=== PATIENT | female | born 1955 | race Two or more races ===

== ENCOUNTER 2016-08-21 15:20 | Outpatient (CLI) | payer OTHER ==
[~2016-08-21] VITALS: Ht 165.1 cm; Wt 139.5 kg
[2016-08-21 15:51] VITALS: Ht 165.1 cm; Wt 139.5 kg
[2016-08-21] MEDS ORDERED: ATOR40TA68 PO (15:51)
[2016-08-21] MEDS ORDERED: PANT40TA4 PO (15:51)
[2016-08-21] MEDS ORDERED: ALEN35TA23 PO (15:51)
[2016-08-21] MEDS ORDERED: CALC250T2 PO (15:51)
[2016-08-21] MEDS ORDERED: CHOL100062 PO (15:51)
[2016-08-21] MEDS ORDERED: VENL100T PO (15:51)
[2016-08-21] MEDS ORDERED: GABA400C14 PO (15:51)
[2016-08-21] MEDS ORDERED: TRAZ100T15 PO (15:51)
[2016-08-21] MEDS ORDERED: WARF6TAB35 PO ×2 (15:51)
[2016-08-21] MEDS ORDERED: DULO60CA59 PO (15:51)
[2016-08-21] MEDS ORDERED: TRAM-40 PO (15:51)
[2016-08-21] MEDS ORDERED: BENA10TA48 PO (15:51)
[2016-08-21] MEDS ORDERED: GABA300C16 PO (15:51)
[2016-08-21] MEDS ORDERED: ASPI-664 PO (15:51)
[2016-08-21] MEDS ORDERED: PRED5 PO (15:51)
[2016-08-21 15:52] VITALS: BP 132/72; PULSE 72; RESP 18
--- NOTE | 2016-08-21 16:00 | PN ---
Date/Time of Note Date/Time of Note DATE: 08/21/16 TIME: 15:52 Outpatient Progress Note Chief Complaint Hypertension/CVA/PE/fibromyalgia/depression HPI Hypertension/patient denies any headache or dizziness, no lightheadedness, no chest pain, no PND orthopnea or ankle edema, patient was recently hospitalized, patient was seen by reel system operator, patient still complains of minimal chest discomfort, CVA/patient had old CVA, no dysphagia, no seizure, difficulty in movements of lower extremities, PE/patient has bilateral PE, in 2016, patient on Lovenox and Coumadin at present , patient last INR was 1, patient was recently hospitalized with a high INR, patient does not have any bruise, no hematuria, no chest pain, no PND orthopnea , no tachypnea, Fibromyalgia/patient has fibromyalgia, is joint pain stiffness, Depression/patient slightly depressed, no suicidal, on medication, Hyperlipidemia/patient has hyperlipidemia, on medication, Review of Systems Const: No Fever, no chills, no Wt. loss, no Fatigue, normal appetite, no diaphoresis. Eyes: No pain, no discharge, no redness, no visual change, no foreign body. ENT: No pain, no bleeding, no congestion, no sore throat, no dysphagia, no discharge or rhinitis. Lymph: No adenopathy, no tender nodes, no lymphedema. Resp: No SOB at present, but patient has off-and-on shortness of breath,, no cough, no sputum, no wheezing, no chest pain. CV: Patient has minimal chest pain patient was recently hospitalized, patient was seen by reel system operator,, no palpitaions, no FRANKLIN, no PND, no edema. GI: Normal appetite, no pain, no nausea, no vomiting, no diarrhea, no blood, no constipation. : No frequency, no urgency, no dysuria, no hematuria, no flank pain, no discharge, no bleeding. Musc: Generalized pain, no back pain, no neck pain, no knee pain, no restricted ROM. Skin: No rash, no skin lesions, no erythema, no laceration, no bruising, no pruritus. Neuro: No HANKINS, no dizziness, no syncope, no seizure, no focal-weakness. Endo: No polyuria, no polydypsia, no dry-skin, no temp-intolerance. Psych: No hallucinations, no depression, no anxiety, no suicidal ideation. Ext: No edema, no pain, no ulcer, no weakness. Physical Exam General Appearance: A 60 y ear-old female who appears well-developed, well- nourished morbidly obese,, in no acute distress. HEENT: Head normocephalic, atraumatic. Pupils equal, round, reactive to light and accommodate. Sclerae are no jaundice. Nasal turbinates pink without erythema or nasal discharge. Mucous membranes pink and moist without lesions. Oropharynx clear without any exudate or discharge. NECK: Supple. Trachea midline, No thyromegaly, No cervical lymphadenopathy, No mass, No carotid bruits, No JVD, Carotid pulses 2+ bilaterally. PULMONARY: Clear to auscultaion bilaterally, No retractions, Chest expansion symmetric bilaterally, no rales, no ronchi, no dulness on percussion. CARDIAC: Normal SI and S2, Regular rate and rythm, no murmur, gallop, or rub. GASTROINTESTINAL: Abdomen is soft, non-tender, Non Rigid, No distention, Positive bowel sounds x4 quadrants, Liver normal. SKIN: Warm, dry, no rash, no bruise, no echmosis. EXTREMITIES: Bilateral lower extremities normal, no edema, no phlabitus, pulse palpable, no contracture. MUSCULOSKELETAL: Spine Normal, Non-tender, Normal range of motion, No swelling, no deformity, no clubbing, or cyanosis, the patient has no edema to bilateral lower extremities, dorsalis pedis pulses palpable bilaterally. NEUROLOGIC: The patient is awake, alert, oriented, responding to yes/no questions appropriately, moving all extremities, cranial nerve intact, normal strenght, normal power, normal coordination, normal gait. Allergies Coded Allergies: No Known Drug Allergies (Verified Allergy, Unknown, 08/21/16) PMH ASHD/CVS/hypertension/bilateral PE/fibromyalgia/depression/DJD Cholecystectomy/left knee meniscus surgery,/benign facial lesion removal,/ stomal stapling, 30 years ago Social Hx Lives in senior citizen apartment, no smoking no drinking no drugs, Family Hx Maternal grandmother and aunt had CVA, no family history of IA, Assessment/Plan Impression Hypertension/CVA/PE/fibromyalgia/depression/rheumatoid arthritis Plan Patient education done about her disease, patient has minimal chest discomfort, patient went for the chest pain to the hospital, patient still has minimal chest pain, no change in pain, Patient was seen by reel system operator, and patient also had workup being done, patient to follow with the primary care physician and reel system operator, Patient INR when she left the hospital was 6, and last INR was 1, patient on Lovenox and Coumadin, patient take Coumadin 6 mg daily, for last few days, Will get INR, discussed with the patient and also nurse practitioner, they will draw the blood, and we will send the nurse to blood draw, and they will call me , I have given a prescription, Patient has all the medication, Medications Home Meds Reported Medications Warfarin Sodium* (Warfarin Sodium*) 6 Mg Tablet, 9 MG PO tuesthursatsun, TAB 08/21/16 Warfarin Sodium* (Warfarin Sodium*) 6 Mg Tablet, 6 MG PO monwed, TAB 08/21/16 Venlafaxine Hcl* (Venlafaxine Hcl*) 100 Mg Tablet, 100 MG PO DAILY, TAB 08/21/16 Trazodone Hcl* (Trazodone Hcl*) 100 Mg Tablet, 100 MG PO QHS for INSOMNIA, #30 TAB 08/21/16 Tramadol Hcl* (Ultram*) 50 Mg Tablet, 100 MG PO BID Y for PAIN, TAB 08/21/16 Prednisone* (Prednisone*) 5 Mg Tab, 5 MG PO DAILY, TAB 08/21/16 Pantoprazole* (Pantoprazole*) 40 Mg Tablet.dr, 40 MG PO AC BREAKFAST, TAB 08/21/16 Gabapentin* (Gabapentin*) 400 Mg Capsule, 400 MG PO QHS, #90 CAP 08/21/16 Gabapentin* (Gabapentin*) 300 Mg Capsule, 300 MG PO BID, #60 CAP 08/21/16 Duloxetine Hcl* (Duloxetine Hcl*) 60 Mg Capsule.dr, 60 MG PO DAILY, #30 CAP 08/21/16 Cholecalciferol* (Vitamin D3*) 1,000 Unit Tablet, 2000 UNIT PO DAILY, TAB 08/21/16 Calcium Citrate (Calcium Citrate) 250 Mg Tablet, 500 MG PO, TAB 08/21/16 Benazepril Hcl* (Benazepril Hcl*) 10 Mg Tablet, 10 MG PO DAILY, #30 TAB 08/21/16 Atorvastatin* (Atorvastatin*) 40 Mg Tablet, 40 MG PO QHS, #30 TAB 08/21/16 Aspirin (Low Dose Aspirin) 81 Mg Tablet.dr, 81 MG PO DAILY, #30 TAB 08/21/16 Alendronate Sodium* (Alendronate Sodium*) 35 Mg Tablet, 35 MG PO Q7D, #4 TAB 08/21/16 NAYE WILCOX MD August 21, 2016 16:00
== END 2016-08-21 16:23 | disposition home or self-care (01) ==
LOC: DCC 15:20
PROVIDERS: ATTEND Internal Medicine
DX: R07.9 Chest pain, unspecified (principal); I10 Essential (primary) hypertension; F32.9 Major depressive disorder, single episode, unspecified; M06.9 Rheumatoid arthritis, unspecified; M79.7 Fibromyalgia; Z79.82 Long term (current) use of aspirin; Z86.73 Personal history of transient ischemic attack (TIA), and cerebral infarction without residual deficits

== ENCOUNTER 2016-09-04 11:46 | Outpatient (CLI) | payer OTHER ==
[~2016-09-04] VITALS: Ht 165.1 cm; Wt 135.9 kg
[~2016-09-04 11:46] MED LIST: ALEN35TA23 PO; ASPI-664 PO; ATOR40TA68 PO; BENA10TA48 PO; CALC250T2 PO; CHOL100062 PO; DULO60CA59 PO; GABA300C16 PO; GABA400C14 PO; PANT40TA4 PO; PRED5 PO; TRAM-40 PO; TRAZ100T15 PO; VENL100T PO; WARF6TAB35 PO
[2016-09-04 11:55] VITALS: BP 149/65; PULSE 74; RESP 18
--- NOTE | 2016-09-04 12:14 | PN ---
Date/Time of Note Date/Time of Note DATE: 09/04/16 TIME: 12:10 Outpatient Progress Note Chief Complaint Hypertension/CVA/PE/fibromyalgia HPI Hypertension/no headache or dizziness, no lightheadedness, no tingling, no numbness, no new local focal weakness, CVA/patient has anemia, no dysphagia, no seizure, difficulty moving lower extremities, patient does have some cramps cramps more during the daytime than at night, PE/no cough expectoration or hemoptysis or shortness of breath, patient on Coumadin, PT/INR therapeutic range, Fibromyalgia/patient has fibromyalgia, patient has joint pain stiffness pain and difficulty in movements,, Review of Systems Const: No Fever, no chills, no Wt. loss, no Fatigue, normal appetite, no diaphoresis. Eyes: No pain, no discharge, no redness, no visual change, no foreign body. ENT: No pain, no bleeding, no congestion, no sore throat, no dysphagia, no discharge or rhinitis. Lymph: No adenopathy, no tender nodes, no lymphedema. Resp: No SOB, no cough, no sputum, no wheezing, no chest pain. No chest pain,'s CV: No chest pain, no palpitaions, no FRANKLIN, no PND, no edema. GI: Normal appetite, no pain, no nausea, no vomiting, no diarrhea, no blood, no constipation. : No frequency, no urgency, no dysuria, no hematuria, no flank pain, no discharge, no bleeding. Musc: Leg spasm and cramps especially on the right leg, no back pain, slight neck pain patient had a neck injection before the hospitalization, no knee pain , no restricted ROM. Skin: No rash, no skin lesions, no erythema, no laceration, no bruising, no pruritus. Neuro: No HANKINS, no dizziness, no syncope, no seizure, no focal-weakness. Endo: No polyuria, no polydypsia, no dry-skin, no temp-intolerance. Psych: No hallucinations, no depression, no anxiety, no suicidal ideation. Ext: No edema, no pain, no ulcer, no weakness. Difficulty moving lower extremities, Physical Exam Vital Signs Date Time Temp Pulse Resp B/P Pulse Ox O2 Delivery O2 Flow Rate FiO2 09/04/16 11:55 97.7 74 18 149/65 93 Room Air General Appearance: A 60 year-old female who appears well-developed, well- nourished, in no acute distress. HEENT: Head normocephalic, atraumatic. Pupils equal, round, reactive to light and accommodate. Sclerae are no jaundice. Nasal turbinates pink without erythema or nasal discharge. Mucous membranes pink and moist without lesions. Oropharynx clear without any exudate or discharge. NECK: Supple. Trachea midline, neck pain, status post injection, no thyromegaly , No cervical lymphadenopathy, No mass, No carotid bruits, No JVD, Carotid pulses 2+ bilaterally. PULMONARY: Clear to auscultaion bilaterally, No retractions, Chest expansion symmetric bilaterally, no rales, no ronchi, no dulness on percussion. CARDIAC: Normal SI and S2, Regular rate and rythm, no murmur, gallop, or rub. GASTROINTESTINAL: Abdomen is soft, non-tender, Non Rigid, No distention, Positive bowel sounds x4 quadrants, Liver normal. SKIN: Warm, dry, no rash, no bruise, no echmosis. EXTREMITIES: Bilateral lower extremities , no edema, no phlabitus, pulse palpable, no contracture. Patient has difficulty moving lower extremities, MUSCULOSKELETAL: Spine Normal, Non-tender, Normal range of motion, No swelling, no deformity, no clubbing, or cyanosis, the patient has no edema to bilateral lower extremities, dorsalis pedis pulses palpable bilaterally. NEUROLOGIC: The patient is awake, alert, oriented, responding to yes/no questions appropriately, moving all extremities, cranial nerve intact, normal strenght, normal power, normal coordination, normal gait. Allergies Coded Allergies: No Known Drug Allergies (Verified Allergy, Unknown, 08/21/16) PMH No change Social Hx No change Family Hx No change Assessment/Plan Impression Hypertension/CVA/PE/fibromyalgia/history of depression/hyperlipidemia Plan Patient encouraged to increase activity, increase passive range of motion, Patient encouraged to follow with the primary care physician, PT/INR Wednesday, and to call us to report, patient at present 7 mg Coumadin, will adjust her Coumadin according to INR, Increase activity, fall precaution, patient has all medication, Prescription for PT/INR given to the patient, Medications Home Meds Reported Medications Warfarin Sodium* (Warfarin Sodium*) 6 Mg Tablet, 9 MG PO yusef, TAB 08/21/16 Warfarin Sodium* (Warfarin Sodium*) 6 Mg Tablet, 6 MG PO monwed, TAB 08/21/16 Venlafaxine Hcl* (Venlafaxine Hcl*) 100 Mg Tablet, 100 MG PO DAILY, TAB 08/21/16 Trazodone Hcl* (Trazodone Hcl*) 100 Mg Tablet, 100 MG PO QHS for INSOMNIA, #30 TAB 08/21/16 Tramadol Hcl* (Ultram*) 50 Mg Tablet, 100 MG PO BID Y for PAIN, TAB 08/21/16 Prednisone* (Prednisone*) 5 Mg Tab, 5 MG PO DAILY, TAB 08/21/16 Pantoprazole* (Pantoprazole*) 40 Mg Tablet.dr, 40 MG PO AC BREAKFAST, TAB 08/21/16 Gabapentin* (Gabapentin*) 400 Mg Capsule, 400 MG PO QHS, #90 CAP 08/21/16 Gabapentin* (Gabapentin*) 300 Mg Capsule, 300 MG PO BID, #60 CAP 08/21/16 Duloxetine Hcl* (Duloxetine Hcl*) 60 Mg Capsule.dr, 60 MG PO DAILY, #30 CAP 08/21/16 Cholecalciferol* (Vitamin D3*) 1,000 Unit Tablet, 2000 UNIT PO DAILY, TAB 08/21/16 Calcium Citrate (Calcium Citrate) 250 Mg Tablet, 500 MG PO, TAB 08/21/16 Benazepril Hcl* (Benazepril Hcl*) 10 Mg Tablet, 10 MG PO DAILY, #30 TAB 08/21/16 Atorvastatin* (Atorvastatin*) 40 Mg Tablet, 40 MG PO QHS, #30 TAB 08/21/16 Aspirin (Low Dose Aspirin) 81 Mg Tablet.dr, 81 MG PO DAILY, #30 TAB 08/21/16 Alendronate Sodium* (Alendronate Sodium*) 35 Mg Tablet, 35 MG PO Q7D, #4 TAB 08/21/16 NAYE WILCOX MD Sep 04, 2016 12:14
--- NOTE | 2016-09-04 15:16 | PN ---
Date/Time of Note Date/Time of Note DATE: 09/04/16 TIME: 15:08 Outpatient Progress Note Chief Complaint Chest pain/diabetes/hypertension/A. fib/hepatitis C/cirrhosis/ HPI Chest pain/patient was recently admitted to the hospital with a chest pain, patient has pleural effusion, patient pain improved, still has some discomfort, Diabetes/no polydipsia polyuria hypoglycemia, gastroparesis, no frequency urgency, no impaired vision, no hypoglycemia, Hypertension/no headache or dizziness, no lightheadedness, A. fib/patient has history of A. fib and flutter, on Eliquis, Hepatitis C/patient has hepatitis C, no jaundice, patient has cirrhosis of liver , Cirrhosis of liver/patient has h has cirrhosis of liver, secondary to hepatitis C, patient has slight ascites, abdominal distention, slightly confused, Review of Systems Const: No Fever, no chills, no Wt. loss, no Fatigue, normal appetite, no diaphoresis. Eyes: No pain, no discharge, no redness, no visual change, no foreign body. ENT: No pain, no bleeding, no congestion, no sore throat, no dysphagia, no discharge or rhinitis. Lymph: No adenopathy, no tender nodes, no lymphedema. Resp: No SOB, no cough, no sputum, no wheezing, minimal chest pain patient was recently hospitalized, patient was worked up, pain slightly better than before,. CV: No chest pain, no palpitaions, no FRANKLIN, no PND, no edema. GI: Normal appetite, no pain, no nausea, no vomiting, no diarrhea, no blood, no constipation. Patient had colonoscopy, and EGD, : No frequency, no urgency, no dysuria, no hematuria, no flank pain, no discharge, no bleeding. Musc: No bone/joint pain, no back pain, no neck pain, no knee pain, no restricted ROM. Skin: No rash, no skin lesions, no erythema, no laceration, no bruising, no pruritus. Neuro: No HANKINS, no dizziness, no syncope, no seizure, no focal-weakness patient feels slightly confused,. Endo: No polyuria, no polydypsia, no dry-skin, no temp-intolerance. Psych: No hallucinations, no depression, no anxiety, no suicidal ideation. Ext: No edema, no pain, no ulcer, no weakness. Physical Exam Vital Signs Date Time Temp Pulse Resp B/P Pulse Ox O2 Delivery O2 Flow Rate FiO2 09/04/16 11:55 97.7 74 18 149/65 93 Room Air General Appearance: A 60 [] year-old male who appears well-developed, well- nourished, in no acute distress. HEENT: Head normocephalic, atraumatic. Pupils equal, round, reactive to light and accommodate. Sclerae are no jaundice. Nasal turbinates pink without erythema or nasal discharge. Mucous membranes pink and moist without lesions. Oropharynx clear without any exudate or discharge. NECK: Supple. Trachea midline, No thyromegaly, No cervical lymphadenopathy, No mass, No carotid bruits, No JVD, Carotid pulses 2+ bilaterally. PULMONARY: Clear to auscultaion bilaterally, No retractions, Chest expansion symmetric bilaterally, no rales, no ronchi, no dulness on percussion. CARDIAC: Normal SI and S2, Regular rate and rythm, no murmur, gallop, or rub. GASTROINTESTINAL: Abdomen is soft, non-tender, Non Rigid, No distention, Positive bowel sounds x4 quadrants, Liver normal slight ascites, not he has a history of a flutter and is hoping 97 was not but much less so because he is only 74 beats,. SKIN: Warm, dry, no rash, no bruise, no echmosis. EXTREMITIES: Bilateral lower extremities normal, no edema, no phlabitus, pulse palpable, no contracture. MUSCULOSKELETAL: Spine Normal, Non-tender, Normal range of motion, No swelling, no deformity, no clubbing, or cyanosis, the patient has no edema to bilateral lower extremities, dorsalis pedis pulses palpable bilaterally. NEUROLOGIC: The patient is awake, alert, oriented, may be slightly confused, responding to yes/no questions appropriately, moving all extremities, cranial nerve intact, normal strenght, normal power, normal coordination, normal gait. Allergies Coded Allergies: No Known Drug Allergies (Verified Allergy, Unknown, 08/21/16) PMH Chest pain/pleural effusion/diabetes/hypertension/A. fib/A flutter/hepatitis C/ cirrhosis of liver/PUD EGD and colonoscopy couple of days ago, Social Hx No drinking, no drugs, at present no smoking at present, Family Hx Noncontributory Assessment/Plan Impression Chest pain/pleural effusion Diabetes Hypertension A. fib Hepatitis C Cirrhosis sent him for a few stool and she has a cirrhosis or some hepatitis and ammonia level Plan Patient education done about above diseases, patient of multiple complex medical problem, patient very very high risk for repeated admission, Patient high risk for sepsis, patient slightly confused, We will get a serum ammonia level, will also get CBC and BMP, Patient encouraged to follow with the primary care physician, Patient encouraged to go to the ER if any symptoms shows up, Patient heart rate has dropped down to 77, at rest and with activity it goes up to 110 120 again, Patient has all the medication, Medications Home Meds Reported Medications Warfarin Sodium* (Warfarin Sodium*) 6 Mg Tablet, 9 MG PO tuesthursatsun, TAB 08/21/16 Warfarin Sodium* (Warfarin Sodium*) 6 Mg Tablet, 6 MG PO monwed, TAB 08/21/16 Venlafaxine Hcl* (Venlafaxine Hcl*) 100 Mg Tablet, 100 MG PO DAILY, TAB 08/21/16 Trazodone Hcl* (Trazodone Hcl*) 100 Mg Tablet, 100 MG PO QHS for INSOMNIA, #30 TAB 08/21/16 Tramadol Hcl* (Ultram*) 50 Mg Tablet, 100 MG PO BID Y for PAIN, TAB 08/21/16 Prednisone* (Prednisone*) 5 Mg Tab, 5 MG PO DAILY, TAB 08/21/16 Pantoprazole* (Pantoprazole*) 40 Mg Tablet.dr, 40 MG PO AC BREAKFAST, TAB 08/21/16 Gabapentin* (Gabapentin*) 400 Mg Capsule, 400 MG PO QHS, #90 CAP 08/21/16 Gabapentin* (Gabapentin*) 300 Mg Capsule, 300 MG PO BID, #60 CAP 08/21/16 Duloxetine Hcl* (Duloxetine Hcl*) 60 Mg Capsule.dr, 60 MG PO DAILY, #30 CAP 08/21/16 Cholecalciferol* (Vitamin D3*) 1,000 Unit Tablet, 2000 UNIT PO DAILY, TAB 08/21/16 Calcium Citrate (Calcium Citrate) 250 Mg Tablet, 500 MG PO, TAB 08/21/16 Benazepril Hcl* (Benazepril Hcl*) 10 Mg Tablet, 10 MG PO DAILY, #30 TAB 08/21/16 Atorvastatin* (Atorvastatin*) 40 Mg Tablet, 40 MG PO QHS, #30 TAB 08/21/16 Aspirin (Low Dose Aspirin) 81 Mg Tablet.dr, 81 MG PO DAILY, #30 TAB 08/21/16 Alendronate Sodium* (Alendronate Sodium*) 35 Mg Tablet, 35 MG PO Q7D, #4 TAB 08/21/16 NAYE WILCOX MD Sep 04, 2016 15:16
== END 2016-09-04 17:00 | disposition home or self-care (01) ==
LOC: DCC 11:46
PROVIDERS: ATTEND Internal Medicine
DX: R07.9 Chest pain, unspecified (principal); E11.9 Type 2 diabetes mellitus without complications; I10 Essential (primary) hypertension; I48.91 Unspecified atrial fibrillation; K74.60 Unspecified cirrhosis of liver; B19.20 Unspecified viral hepatitis C without hepatic coma